=== PATIENT | male | born 1975 | race Native Hawaiian/Other Pacific Islander ===

== ENCOUNTER 2019-01-19 12:22 | Outpatient (CLI) | payer OTHER | END 2019-01-19 12:25 | disposition short-term general hospital (02) | LOC: AMB 12:22 | DX: R51 Headache (principal); M54.2 Cervicalgia; V59.9XXA Occupant (driver) (passenger) of pick-up truck or van injured in unspecified traffic accident, initial encounter; Y92.413 State road as the place of occurrence of the external cause; Y93.9 Activity, unspecified | CPT/HCPCS: A0425; A0429 ==

== ENCOUNTER 2019-01-19 12:36 | Emergency (ER) | payer OTHER ==
[~2019-01-19] VITALS: Ht 182.9 cm; Wt 93.0 kg
[2019-01-19 12:39] VITALS: BP 149/99; TEMP 98.2
== END 2019-01-19 15:14 | disposition home or self-care (01) ==
LOC: ED 12:36
DX: S09.8XXA Other specified injuries of head, initial encounter (principal); S16.1XXA Strain of muscle, fascia and tendon at neck level, initial encounter; V59.40XA Driver of pick-up truck or van injured in collision with unspecified motor vehicles in traffic accident, initial encounter
CPT/HCPCS: 99283